=== PATIENT | female | born 1985 | race Caucasian/White ===

== ENCOUNTER 2021-07-28 16:01 | Emergency (ER) | payer OTHER ==
[~2021-07-28] VITALS: Ht 160 cm; Wt 65.8 kg
[2021-07-28] MEDS ORDERED: ACETAMINOPHEN 325 MG TAB PO STA (17:30)
[2021-07-28] MEDS ORDERED: ONDANSETRON HCL INJ 2MG/ML 2ML 2 MG/ML VIAL IV STA (17:42)
[2021-07-28] MEDS ORDERED: SODIUM CHLORIDE 0.9% 1000ML 1,970 ML IV SCH (17:45)
[2021-07-28 17:46] LABS: BASOPHILS % 0.2 % (0.0-1.0); HEMATOCRIT 40.4 % (34.2-44.1); HEMOGLOBIN 13.8 g/dL (12.0-16.0); LYMPHOCYTES # (AUTO) 0.3 (1.0-3.2); LYMPHOCYTES % 2.3 % (18.0-39.1); MEAN CORPUSCULAR HEMOGLOBIN 30.2 pg (28-32); MEAN CORPUSCULAR HGB CONC 34.2 g/dL (31-35); MEAN CORPUSCULAR VOLUME 88.4 fL (81-99); MONOCYTES % 7.9 % (4.4-11.3); NEUTROPHILS # (AUTO) 11.4 (2.1-6.9); NEUTROPHILS % 89.2 % (38.7-80.0); PLATELET COUNT 149 x10e3/uL (140-360); RED BLOOD COUNT 4.57 x10e6/uL (3.6-5.1); RED CELL DISTRIBUTION WIDTH 12.4 % (11.7-14.4)
[2021-07-28 18:05] LABS: ALBUMIN 3.7 g/dL (3.5-5.0); ANION GAP 17.6 mmol/L (8-16); CALCIUM 8.8 mg/dL (8.4-10.2); CREATININE, SERUM 0.92 mg/dL (0.57-1.11); POTASSIUM 3.6 mmol/L (3.5-5.1)
[2021-07-28 18:20] LABS: CLARITY,URINE CLEAR (CLEAR); COLOR,URINE YELLOW (YELLOW)
[2021-07-28 18:21] LABS: KETONES,URINE 2+ (NEGATIVE); LEUKOCYTE ESTERASE ,URINE SMALL (NEGATIVE); NITRITE,URINE POSITIVE (NEGATIVE); PROTEIN,URINE DIPSTICK 2+ (NEGATIVE); URINE UROBILINOGEN 0.2 mg/dL (0.2 - 1)
[2021-07-28 18:29] LABS: BACTERIA,URINE MODERATE /HPF; EPITHELIAL CELLS,URINE MANY /LPF; WBC,URINE (MAN) >50 /HPF (0-5)
[2021-07-28] MEDS ORDERED: SODIUM CHLORIDE 0.9% 1000ML 1,000 ML IV STA ×2 (18:36)
[2021-07-28] MEDS ORDERED: CEFTRIAXONE 1 GM in SODIUM CHLORIDE 0.9% 50ML 50 ML IV ONE (18:45)
[2021-07-28] MEDS ORDERED: KETOROLAC TROMETHAMINE 30 MG/ML VIAL IV STA (19:17)
[2021-07-28] MEDS ORDERED: KETOROLAC TROMETHAMINE 30 MG/ML VIAL ONE (19:29)
[2021-07-28] MEDS ORDERED: FLOMAX0.4 MG PO (19:45)
[2021-07-28] MEDS ORDERED: IBUPROFEN600 MG PO (19:45)
[2021-07-28] MEDS ORDERED: CEFDINIR300 MG PO (19:45)
[2021-07-28 20:13] VITALS: BP 116/72
== END 2021-07-28 20:20 | disposition home or self-care (01) ==
LOC: ER 17:16
DX: R50.9 Fever, unspecified (principal); N39.0 Urinary tract infection, site not specified; N20.0 Calculus of kidney; R10.31 Right lower quadrant pain; R11.2 Nausea with vomiting, unspecified; R94.31 Abnormal electrocardiogram [ECG] [EKG]; Z86.73 Personal history of transient ischemic attack (TIA), and cerebral infarction without residual deficits
CPT/HCPCS: 36415; 71045; 74176; 80053; 81001; 83605; 84702; 85025; 87040; 87071; 87086; 87186; 87205; 93005; 99284; J0696; J1885; J2405; J7030